=== PATIENT | female | born 1955 | race Caucasian/White ===

== ENCOUNTER → 2017-01-27 | Outpatient (CLI) | payer MEDICARE, BC ==
--- NOTE | 2017-01-27 11:52 | RADIOLOGY REPORT (SQ) ---
EXAM DESCRIPTION: CT ABD/PELVIS WITH IV ORAL COMPLETED DATE/TIME: 01/27/2017 11:21 am REASON FOR STUDY: VENTRAL HERNIA W/O OBSTRUCTION OR GANGRENE (K43.9) K43.9 VENTRAL HERNIA WITHOUT O BSTRUCTION OR GANGRENE COMPARISON: None. TECHNIQUE: CT scan of the abdomen and pelvis performed with intravenous and oral contrast using donte jesika scanning technique with dynamic intravenous contrast injection. Images reviewed with lung, soft t issue, and bone windows. Reconstructed coronal and sagittal MPR images reviewed. Delayed images for e valuation of the urinary system also acquired. All images stored on PACS. All CT scanners at this facility use dose modulation, iterative reconstruction, and/or weight based d osing when appropriate to reduce radiation dose to as low as reasonably achievable (ALARA). [facility]: Dose Right [facility]: CareDose [facility]: Dose Right [facility]: Teradose 4D [facility]: Blue Calypso CONTRAST TYPE AND DOSE: 83 mL Isovue 370- low osmolar. RENAL FUNCTION: Creatinine 0.7 RADIATION DOSE: 27.73mGy. LIMITATIONS: None. FINDINGS: LOWER CHEST: Mild motion artifact. Suspect mild areas of basilar subsegmental atelectasis and potential scar. Minimal hiatal hernia. Calcifications in the lower mediastinum and visualized ha consistent with previous granulomatous disease. LIVER: Normal size. No masses or dilated ducts. SPLEEN: Normal size. No focal lesions. PANCREAS: No masses. No significant calcifications. No adjacent inflammation or peripancreatic fluid collections. Pancreatic duct not dilated. GALLBLADDER: Surgically absent. ADRENAL GLANDS: No significant masses or asymmetry. RIGHT KIDNEY AND URETER: Numerous small cysts, some of which are too small to further characterize. No evidence of urinary obstruction. LEFT KIDNEY AND URETER: Numerous tiny cysts, some of which are too small to further characterize. No evidence of urinary obstruction. AORTA AND VESSELS: No aneurysm. No dissection. Renal arteries, SMA, celiac without stenosis. No praveen s venous clot. RETROPERITONEUM: Broad midline ventral umbilical hernia. This contains a portion of transverse colon . Otherwise, fat containing with minimal fat stranding. Hernia sac measures up to 15 cm transverse dimension. The ventral wall defect is approximately 6 cm transverse by 5 cm craniocaudal. BOWEL AND PERITONEAL CAVITY: Hernia as above. No mechanical bowel obstruction. No evidence of bowel obstruction. No gross mass. No ascites, abnormal gas or mesenteric adenopathy. APPENDIX: Normal. PELVIS: No significant masses. Normal bladder. No free fluid. ABDOMINAL WALL: As above. No abdominal wall mass. BONES: No significant or acute findings. OTHER: No other significant finding. IMPRESSION: 1. Ventral umbilical hernia as above. TECHNICAL DOCUMENTATION: JOB ID: [id number] Quality ID # [id number]: Final reports with documentation of one or more dose reduction techniques (e.g., Au tomated exposure control, adjustment of the mA and/or kV according to patient size, use of iterative reconstruction technique) 2010 [employer]- All Rights Reserved
== END ==
LOC: RAD 10:30
PROVIDERS: ATTEND Surgery
DX: K43.9 Ventral hernia without obstruction or gangrene (principal)
CPT/HCPCS: 74177; 82565